=== PATIENT | male | born 2000 | race Caucasian/White ===

== ENCOUNTER → 2019-03-30 | Outpatient (CLI) | payer OTHER ==
[~2019-03-30] MED LIST: METHACHOLINE KIT (J7674) INH ONE
--- NOTE | 2019-03-30 09:03 | PFTRPT ---
Height: 68.00 Inches Weight: 195.00 Lbs BSA: 2.02 Diagnosis: R06.02 DATE OF PROCEDURE: 03/30/2019 ORDERED BY: Dr. Dennys Evans INTERPRETATION: Study of excellent technical quality. Under protocol, methacholine was administered. At a dose of 0.25 mg or 1.375 CDUs, a 32% decline in the FEV1 was noted. PC of 0.07 is significant. Flow rates did return to baseline post bronchodilator administration. IMPRESSION: Positive methacholine challenge study. MTDD
== END ==
LOC: M CARPUL 08:06
PROVIDERS: ATTEND Internal Medicine Pulmonary Disease
DX: R06.02 Shortness of breath (principal)
CPT/HCPCS: 94070; J7674

== ENCOUNTER → 2019-04-19 | Outpatient (CLI) | payer OTHER ==
[~2019-04-19] MED LIST changes: +ISOVUE-370 76% 100ML VIAL (Q9967) As Ordered ONE; -METHACHOLINE KIT (J7674) INH ONE
--- NOTE | 2019-04-19 16:14 | REP ---
CT pulmonary angiogram: With IV contrast. History: Shortness of breath. Comparison studies: No comparison study. Contrast dose: 75 ML of Isovue [address] technique: Helical scanning is acquired and overlapping 1.5 mm and contiguous 3 mm axial images are reformatted. In addition, maximum intensity projection and multiplanar re-formation images are generated in sagittal and coronal imaging projections. CT pulmonary angiographic findings: There is good opacification in the pulmonary arterial tree. There is no CT evidence of pulmonary embolus. Maximal intensity projection images show no vessel cutoff or filling defect. The thoracic aorta enhances homogeneously. There is no evidence of aneurysm or dissection. The lung bae are clear. No hilar or mediastinal mass or adenopathy is observed. The visualized upper abdominal structures are unremarkable. Impression: There is no CT evidence of pulmonary embolism. Normal CT pulmonary angiogram. Electronically Signed by Nathan Prather MD 04/19/2019 04:05 P
== END ==
LOC: M RAD 13:40
PROVIDERS: ATTEND Internal Medicine Pulmonary Disease
DX: R06.02 Shortness of breath (principal)

== ENCOUNTER 2020-04-16 15:36 | Emergency (ER) | payer OTHER ==
[~2020-04-16] VITALS: Ht 172.7 cm; Wt 77.8 kg
[2020-04-16 16:26] LABS: HEMATOCRIT 49.8 % (42.0-52.0); MEAN CORPUSCULAR HEMOGLOBIN 30.1 pg (27.0-33.0); MEAN CORPUSCULAR HGB CONC 32.1 g/dl (32.0-36.5); MEAN CORPUSCULAR VOLUME 93.6 fl (80.0-96.0); PLATELET COUNT, AUTOMATED 233 10^3/uL (150-450); RED BLOOD COUNT 5.32 10^6/uL (4.30-6.10); WHITE BLOOD COUNT 8.2 10^3/uL (4.0-10.0)
[2020-04-16 16:51] LABS: AMPHETAMINES LEVEL URINE NEGATIVE (NEGATIVE); BARBITURATES URINE NEGATIVE (NEGATIVE); BENZODIAZEPINES URINE NEGATIVE (NEGATIVE); CANNABINOIDS URINE NEGATIVE (NEGATIVE); COCAINE METABOLITE URINE NEGATIVE (NEGATIVE); METHADONE URINE NEGATIVE (NEGATIVE); OPIATES URINE NEGATIVE (NEGATIVE); PHENCYCLIDINE URINE NEGATIVE (NEGATIVE)
[2020-04-16 17:37] LABS: ACETAMINOPHEN LEVEL < 2.0 UG/ML (10.0-30.0); ALBUMIN 4.5 GM/DL (3.2-5.2); ALT/SGPT 23 U/L (12-78); BILIRUBIN,DIRECT 0.1 MG/DL (0.0-0.2); BILIRUBIN,TOTAL 0.5 MG/DL (0.2-1.0); BLOOD UREA NITROGEN 13 MG/DL (7-18); CALCIUM LEVEL 9.7 MG/DL (8.5-10.1); CARBON DIOXIDE LEVEL 27 MEQ/L (21-32); CHLORIDE LEVEL 106 MEQ/L (98-107); CREATININE FOR GFR 1.01 MG/DL (0.70-1.30); ETHYL ALCOHOL (ETHANOL) < 0.003 % (0.000-0.010); GLOMERULAR FILTRATION RATE > 60.0 (>60); GLUCOSE, FASTING 82 MG/DL (70-100); SALICYLATE LEVEL < 1.7 MG/DL (5.0-30.0); SODIUM LEVEL 140 MEQ/L (136-145); TOTAL PROTEIN 7.8 GM/DL (6.4-8.2)
[2020-04-16 19:44] VITALS: BP 121/61
== END 2020-04-16 19:45 | disposition home or self-care (01) ==
LOC: M ED 15:36
DX: Z00.8 Encounter for other general examination (principal); R45.851 Suicidal ideations; F33.9 Major depressive disorder, recurrent, unspecified; F41.9 Anxiety disorder, unspecified; F90.9 Attention-deficit hyperactivity disorder, unspecified type; J45.909 Unspecified asthma, uncomplicated; F17.200 Nicotine dependence, unspecified, uncomplicated; Z88.8 Allergy status to other drugs, medicaments and biological substances
CPT/HCPCS: 36415; 80048; 80076; 80307; 84443; 85027; 99284; G0480